=== PATIENT | male | born 1990 | race Caucasian/White ===

== ENCOUNTER 2018-10-02 11:57 | Emergency (ER) | payer MEDICAID, OTHER ==
[~2018-10-02] VITALS: Ht 175.3 cm; Wt 52.2 kg
[2018-10-02 12:10] VITALS: BP_SYST 105
--- NOTE | 2018-10-02 12:10 | NUR ---
Patient to ER bed 3 to gown for evaluation. Side rails up. Assumed care.
--- NOTE | 2018-10-02 12:15 | NUR ---
Patient AAOx4, came into ER c/o SOB with pain upon inspiration. Patient reports "The pain is in my right two upper ribs when I breathe in." Patient reports PMH of asymptomatic bradycardia at night with associated sleep apnea and asthma. Patient denies any allergies. Skin warm/dry/pink and respirations even and unlabored. No signs or symptoms of acute distress noted.
--- NOTE | 2018-10-02 12:19 | NUR ---
ER Dr. Ford at bedside examining patient.
--- NOTE | 2018-10-02 12:40 | NUR ---
CXR being performed at bedside. Patient tolerating well.
--- NOTE | 2018-10-02 13:47 | NUR ---
Patient given written and verbal discharge instructions and verbalizes understanding. ER Dr. Ford discussed with patient the results and treatment provided. Patient in stable condition. ID arm band removed. Rx of Naproxen and Promethazine DM given. Patient educated on pain management and to follow up with PMD. Pain Scale 2/10 and tolerable. Opportunity for questions provided and answered. Medication side effect fact sheet provided.
[2018-10-02 13:51] VITALS: BP_SYST 114
== END 2018-10-02 13:46 | disposition home or self-care (01) ==
LOC: SED 11:57
DX: R09.1 Pleurisy (principal); R07.89 Other chest pain; J45.909 Unspecified asthma, uncomplicated; Z86.79 Personal history of other diseases of the circulatory system; Z86.2 Personal history of diseases of the blood and blood-forming organs and certain disorders involving the immune mechanism
CPT/HCPCS: 71046-TC; 99283

== ENCOUNTER 2018-10-04 10:39 | Emergency (ER) | payer MEDICAID ==
[~2018-10-04] VITALS: Ht 172.7 cm; Wt 56.2 kg
[2018-10-04 10:40] VITALS: BP_SYST 115
[2018-10-04] MEDS ORDERED: IBUPROFEN 600 MG TABLET PO ONE (11:00)
[2018-10-04 11:25] VITALS: BP_SYST 115
== END 2018-10-04 11:25 | disposition home or self-care (01) ==
LOC: SED 10:39
DX: S60.221A Contusion of right hand, initial encounter (principal); F17.210 Nicotine dependence, cigarettes, uncomplicated; J45.909 Unspecified asthma, uncomplicated; W22.8XXA Striking against or struck by other objects, initial encounter; Y93.89 Activity, other specified; Y92.89 Other specified places as the place of occurrence of the external cause; Y99.8 Other external cause status
CPT/HCPCS: 99283

== ENCOUNTER 2018-10-17 10:53 | Emergency (ER) | payer MEDICAID ==
[~2018-10-17] VITALS: Ht 172.7 cm; Wt 56.2 kg
[2018-10-17 11:06] VITALS: BP_SYST 100
--- NOTE | 2018-10-17 12:40 | NUR ---
Pt resting bed no acute resp distress noted.Pt c/o CWP upon presentation.Pt seen in ED for same complaint recently.
--- NOTE | 2018-10-17 12:41 | NUR ---
Patient to ER bed 4 to gown for evaluation. Side rails up. Report given to Jose ELAINE.
--- NOTE | 2018-10-17 14:10 | NUR ---
Pt presents to ED c/o CWP.
--- NOTE | 2018-10-17 14:15 | NUR ---
ER at bedside examining patient.
[2018-10-17 15:22] VITALS: BP_SYST 101
--- NOTE | 2018-10-17 15:22 | NUR ---
Patient given written and verbal discharge instructions and verbalizes understanding. ER MD discussed with patient the results and treatment provided. Patient in stable condition. ID arm band removed. no Rx of given. Patient educated on pain management and to follow up with PMD. Pain Scale 0. Opportunity for questions provided and answered. Medication side effect fact sheet provided.
== END 2018-10-17 15:22 | disposition home or self-care (01) ==
LOC: SED 10:53
DX: R07.89 Other chest pain (principal); F17.210 Nicotine dependence, cigarettes, uncomplicated; F12.10 Cannabis abuse, uncomplicated; J45.909 Unspecified asthma, uncomplicated; Z71.6 Tobacco abuse counseling
CPT/HCPCS: 71046-TC; 71100; 99283

== ENCOUNTER 2019-01-04 12:11 | Emergency (ER) | payer MEDICAID ==
[~2019-01-04] VITALS: Ht 172.7 cm; Wt 54.4 kg
[2019-01-04 12:17] VITALS: BP_SYST 99
[2019-01-04 13:30] VITALS: BP_SYST 99
== END 2019-01-04 13:30 | disposition home or self-care (01) ==
LOC: SED 12:11
DX: M25.561 Pain in right knee (principal); M54.2 Cervicalgia; J45.909 Unspecified asthma, uncomplicated
CPT/HCPCS: 73564; 99283

== ENCOUNTER 2020-08-24 12:34 | Emergency (ER) | payer MEDICAID ==
[~2020-08-24] VITALS: Ht 172.7 cm; Wt 52.6 kg
[~2020-08-24 12:34] MED LIST: PREP PO
[2020-08-24 12:40] VITALS: BP_SYST 105
[2020-08-24 13:07] VITALS: BP_SYST 105
== END 2020-08-24 13:07 | disposition home or self-care (01) ==
LOC: SED 12:34
DX: S80.11XA Contusion of right lower leg, initial encounter (principal); J45.909 Unspecified asthma, uncomplicated; X58.XXXA Exposure to other specified factors, initial encounter; Y93.89 Activity, other specified; Y92.89 Other specified places as the place of occurrence of the external cause; Y99.8 Other external cause status
CPT/HCPCS: 99281

== ENCOUNTER 2021-08-04 20:54 | Emergency (ER) | payer OTHER, MEDICAID ==
[~2021-08-04] VITALS: Ht 172.7 cm; Wt 56.7 kg
[2021-08-04 21:01] VITALS: BP_SYST 123
--- NOTE | 2021-08-04 21:01 | NUR ---
Patient to ER bed 4 to gown for evaluation. Side rails up. Report given to Kia ELAINE(sarah beth).
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
--- NOTE | 2021-08-04 21:21 | NUR ---
Dr. Alston at [facility] with patient for evaluation.
--- NOTE | 2021-08-04 21:45 | NUR ---
Pt to Ct accompained by staff.
--- NOTE | 2021-08-04 21:55 | NUR ---
Pt returned from CT accompained by staff.
--- NOTE | 2021-08-04 22:25 | NUR ---
Pt resting in bed using the phone. No signs of resp distress. Safety precautions in place and connected to monitor.
[2021-08-04 23:50] LABS: BASOPHILS % (AUTO) 0.7 % (0.0-2.0); EOSINOPHILS # (AUTO) 0.1 K/uL (0.0-0.4); EOSINOPHILS % (AUTO) 1.6 % (0.0-4.0); HEMATOCRIT 45.8 % (36-54); LYMPHOCYTES # (AUTO) 3.3 K/uL (1.0-5.5); LYMPHOCYTES % (AUTO) 51.6 % (20.5-51.5); MEAN CORPUSCULAR HEMOGLOBIN 31 pg (27-31); MEAN CORPUSCULAR HGB CONC 35 % (32-36); MEAN CORPUSCULAR VOLUME 87 fL (79.0-98.0); MONOCYTES # (AUTO) 0.7 K/uL (0.0-1.0); MONOCYTES % (AUTO) 10.3 % (1.7-9.3); NEUTROPHILS # (AUTO) 2.3 K/uL (1.8-7.7); NEUTROPHILS % (AUTO) 35.8 % (40.0-70.0); PLATELET COUNT (AUTO) 169 K/uL (130-430); RED BLOOD CELL COUNT(AUTO) 5.24 MIL/uL (4.2-6.2); RED CELL DISTRIBUTION WIDTH 12.5 % (9.0-15.0); WHITE BLOOD COUNT (AUTO) 6.4 K/uL (4.8-10.8)
[2021-08-05 00:02] LABS: ANION GAP 8 (5-15); CALCIUM 8.4 mg/dL (8.4-11.0); CHLORIDE 102 mmol/L (98-107); CREATININE 1.05 mg/dL (0.55-1.30); GLUCOSE 87 mg/dL (70-99); POTASSIUM 3.5 mmol/L (3.5-5.1); SODIUM SERUM 138 mmol/L (136-145); UREA NITROGEN, BLOOD 8 mg/dL (8-21)
[2021-08-05 00:18] LABS: ALANINE AMINOTRANSFERASE 24 U/L (12-78); ALBUMIN 3.9 g/dL (3.4-4.8); ASPARTATE AMINOTRANSFERASE 20 U/L (10-37); TOTAL BILIRUBIN 0.8 mg/dL (0.0-1.0)
[2021-08-05 00:19] LABS: GFR AFRICAN AMERICAN 106 mL/min (>90)
--- NOTE | 2021-08-05 01:06 | NUR ---
Blood collected and walked over to lab.
--- NOTE | 2021-08-05 01:18 | NUR ---
Kandy smith in [facility] - 08/05/21 at [id number] consent completed.
[2021-08-05] MEDS ORDERED: HYDR-3917 PO (01:19)
[2021-08-05] MEDS ORDERED: IBUP-1969 PO (01:19)
--- NOTE | 2021-08-05 01:19 | NUR ---
CT consent completed. Information provided by the patient.
[2021-08-05] MEDS ORDERED: CYCL10TA24 PO (01:21)
[2021-08-05 01:28] LABS: HEMATOCRIT 43.6 % (36-54); HEMOGLOBIN 15.4 g/dL (14.0-18.0); MEAN CORPUSCULAR HEMOGLOBIN 31 pg (27-31); MEAN CORPUSCULAR HGB CONC 35 % (32-36); MEAN CORPUSCULAR VOLUME 87 fL (79.0-98.0); PLATELET COUNT (AUTO) 166 K/uL (130-430); RED CELL DISTRIBUTION WIDTH 12.7 % (9.0-15.0); WHITE BLOOD COUNT (AUTO) 5.9 K/uL (4.8-10.8)
--- NOTE | 2021-08-05 01:35 | NUR ---
Patient transported to radiology via gurney, accompanied by staff.
--- NOTE | 2021-08-05 01:55 | NUR ---
Pt returned from radiology via gurney accompained by staff.
--- NOTE | 2021-08-05 03:30 | NUR ---
Applied wrist stabilzer to the right wrist.
[2021-08-05 03:37] VITALS: BP_SYST 109
--- NOTE | 2021-08-05 03:37 | NUR ---
Patient given written and verbal discharge instructions and verbalizes understanding. ER Dr. Welch discussed with patient the results and treatment provided. Patient in stable condition. ID arm band removed. IV catheter removed intact and dressing applied, no active bleeding. Rx of flexeril, motrin, and norco given. Patient educated on pain management and to follow up with PMD. Pain Scale 3. Opportunity for questions provided and answered. Medication side effect fact sheet provided.
[2021-08-07] MEDS ORDERED: HYDR-3917 PO (11:10)
[2021-08-07] MEDS ORDERED: IBUP-1969 PO (11:10)
[2021-08-07] MEDS ORDERED: CYCL10TA24 PO (11:10)
== END 2021-08-05 03:37 | disposition home or self-care (01) ==
LOC: SED 20:54
DX: S22.32XA Fracture of one rib, left side, initial encounter for closed fracture (principal); S63.501A Unspecified sprain of right wrist, initial encounter; S40.011A Contusion of right shoulder, initial encounter; S20.211A Contusion of right front wall of thorax, initial encounter; V49.49XA Driver injured in collision with other motor vehicles in traffic accident, initial encounter; Y93.89 Activity, other specified; Y92.89 Other specified places as the place of occurrence of the external cause; Y99.8 Other external cause status
CPT/HCPCS: 36415; 71250; 73030; 73110; 74177; 76376 ×2; 71260; 80053; 83051; 84484; 85014; 85025; 85048; 85049; 86886; 86900; 86901; 99285; Q9967

== ENCOUNTER 2023-08-19 23:34 | Emergency (ER) | payer MEDICAID, OTHER ==
[~2023-08-19] VITALS: Ht 172.7 cm; Wt 57.6 kg
[~2023-08-19 23:34] MED LIST changes: +CYCL10TA24 PO; +HYDR-3917 PO; +IBUP-1969 PO
[2023-08-19 23:45] VITALS: BP_SYST 126; PULSE 82; RESP 18; TEMP 97.8; O2SAT 96
[2023-08-20] MEDS: IBUPROFEN 600 MG TABLET PO ONE (00:01)
[2023-08-20] MEDS ORDERED: NAPR-1172 PO (00:19)
[2023-08-20 00:37] VITALS: BP_SYST 101; PULSE 80; RESP 18; O2SAT 96
== END 2023-08-20 00:34 | disposition home or self-care (01) ==
LOC: SED 23:34
DX: S63.501A Unspecified sprain of right wrist, initial encounter (principal); J45.909 Unspecified asthma, uncomplicated; Z79.899 Other long term (current) drug therapy; W18.39XA Other fall on same level, initial encounter; Y93.89 Activity, other specified; Y92.89 Other specified places as the place of occurrence of the external cause; Y99.8 Other external cause status
CPT/HCPCS: 99283